=== PATIENT | female | born 1980 | race Hispanic/Latino ===

== ENCOUNTER 2019-09-17 19:01 | Inpatient (IN) ==
[2019-09-17] MEDS ORDERED: PEPCID PO PRN (19:04)
[2019-09-17] MEDS ORDERED: STADOL IV PRN ×3 (19:04)
[2019-09-17] MEDS ORDERED: PEPCID IV PRN (19:04)
[2019-09-17] MEDS ORDERED: PEPCID PO ONE (19:04)
[2019-09-17] MEDS ORDERED: AMBIEN PO PRN (19:04)
[2019-09-17] MEDS ORDERED: ZOFRAN IV PRN (19:04)
[2019-09-17] MEDS ORDERED: BRETHINE SUBQ PRN (19:04)
[2019-09-17] MEDS ORDERED: LR 1,000 ML IV ONE (19:04)
[2019-09-17] MEDS ORDERED: PITOCIN 30 UNITS/NS 30 UNIT/500 ML IV.SOLN IV SCH (19:15)
[2019-09-17 19:23] LABS: URINE SOURCE VOIDED
[2019-09-17 19:29] LABS: BILIRUBIN URINE NEGATIVE (NEGATIVE); BLOOD URINE NEGATIVE (NEGATIVE); COLOR YELLOW; GLUCOSE URINE NEGATIVE (NEGATIVE); KETONE URINE NEGATIVE (NEGATIVE); LEUKOCYTES URINE NEGATIVE (NEGATIVE); NITRITE URINE NEGATIVE (NEGATIVE); PROTEIN URINE NEGATIVE (NEGATIVE); SP GRAVITY URINE 1.006; TURBIDITY URINE CLEAR (CLEAR); UROBILINOGEN URINE NORMAL (NORMAL)
[2019-09-17 19:40] LABS: UR AMPHETAMINES QUAL NONE DETECTED (NONE DETECT); UR BARBITUATES QUAL NONE DETECTED (NONE DETECT); UR BENZODIAZEPIN QUAL NONE DETECTED (NONE DETECT); UR CANNABINOIDS QUAL NONE DETECTED (NONE DETECT); UR COCAINE QUAL NONE DETECTED (NONE DETECT); UR METHADONE QUAL NONE DETECTED (NONE DETECT); UR OPIATES QUAL NONE DETECTED (NONE DETECT); UR OXYCODONE QUAL NONE DETECTED (NONE DETECT); UR PCP QUAL NONE DETECTED (NONE DETECT)
[2019-09-17 20:15] LABS: BASO# 0.01 X1000 (0.0-0.2); BASO% 0.2 % (0.0-0.8); EOS# 0.04 X1000 (0.0-0.7); EOS% 0.6 % (0.0-10.0); HEMATOCRIT 35.7 % (37.0-47.0); HEMOGLOBIN 11.6 g/dL (12.0-16.0); IMM GRAN# 0.02 X1000 (0.0-0.04); IMM GRAN% 0.3 % (0.0-0.5); LYMPH# 1.39 X1000 (1.2-3.4); LYMPH% 21.1 % (20.5-51.1); MCH 26.2 PG (27-31); MCHC 32.5 g/dL (33-37); MCV 80.8 FL (81-99); MONO# 0.86 X1000 (0.11-0.59); MPV 10.8 FL (7.4-10.4); NEUT# 4.28 X1000 (1.4-6.5); NEUT% 64.8 % (42.2-75.2); PLT 264 X1000 (130-400); RBC 4.42 XMIL (4.2-5.4); RDW 20.2 % (11.5-14.5)
[2019-09-17] MEDS: CYTOTEC PO SCH (20:15)
[2019-09-17] MEDS: TYLENOL PO PRN (23:24)
[2019-09-18] MEDS: CYTOTEC PO SCH (00:25)
[2019-09-18] MEDS ORDERED: CYTOTEC PO ONE (04:22)
[2019-09-18] MEDS: REGLAN PO ONE (04:23)
[2019-09-18] MEDS ORDERED: XYLOCAINE-MPF 1% INJ PRN (07:28)
[2019-09-18] MEDS ORDERED: MINERAL OIL TOP PRN (07:28)
--- NOTE | 2019-09-18 14:44 | HISTORY AND PHYSICAL ---
HISTORY OF PRESENT ILLNESS: The patient is a 39-year-old female, G5, P4, at 41 weeks gestation. This was noted by last menstrual period and a 3rd trimester ultrasound. Patient had received late care. Group B strep culture was negative. Cervix was 1 cm in the office and still had thickness and was posterior. It was felt she could using cervical ripening. Ultrasound in the office revealed that her VIOLETA was on the low end of normal and due to the 41 week status based on blade care, we will proceed with cervical ripening and induction of labor. PAST MEDICAL HISTORY: Unremarkable. PAST SURGICAL HISTORY: None. PAST OB HISTORY: G5- P4, spontaneous vaginal delivery x4. Her largest infant was 7 pounds. 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 REVIEW OF SYSTEMS: All systems reviewed and noncontributory. FAMILY HISTORY: Significant for high blood pressure. SOCIAL HISTORY: Tobacco use none alcohol use none. MEDICATIONS: vitamins and iron. ALLERGIES: No known drug allergies. PHYSICAL EXAMINATION: VITAL SIGNS: Height 5 feet 3 inches, weight 173 pounds, temp 98.1 degrees, blood pressure 110/57, pulse of 96, respirations 18, heart rate in the 130s with good zmyx-uh-ddag variability. HEENT: Pupils equal, round, reactive to light accommodation. Extraocular movements intact. Oropharynx clear. NECK: Supple, no thyromegaly. LUNGS: Clear to auscultation. HEART: Regular rate and rhythm. ABDOMEN: Gravid, nontender. PELVIC: Cervix was 1 cm of 40% effaced and -2 station. Ultrasound confirmed vertex presentation. EXTREMITIES: No clubbing, cyanosis, or edema noted. NEUROLOGIC: Cranial nerves 2-12 grossly intact. Motor 5/5, DTRs 2+ bilaterally. ASSESSMENT/PLAN: 39-year-old female G5, P4, at 41 weeks gestation by late care. The patient will be admitted for cervical ripening and induction of labor. cc: Kwame Mancuso III, MD
[2019-09-19] MEDS ORDERED: PEPCID PO ONE (07:17)
[2019-09-19] MEDS ORDERED: REGLAN PO ONE (07:17)
[2019-09-19] MEDS ORDERED: LR 500 ML IV ONE (07:17)
[2019-09-19] MEDS ORDERED: KEFZOL 1 GM/D5W 1 GM/50 ML IVPB IV PRN (07:17)
[2019-09-19] MEDS ORDERED: BICITRA ONE (07:43)
[2019-09-19] MEDS ORDERED: BICITRA PO ONE (07:43)
[2019-09-19] MEDS: REGLAN PO ONE (07:45)
[2019-09-19] MEDS ORDERED: FENTANYL ONE (07:47)
[2019-09-19] MEDS ORDERED: DURAMORPH ONE (07:47)
[2019-09-19] MEDS: KEFZOL 1 GM/D5W 1 GM/50 ML IVPB IV PRN ×2 (07:49→07:58)
[2019-09-19] MEDS ORDERED: ROBINUL ONE (08:06)
[2019-09-19] MEDS ORDERED: DECADRON ONE (08:06)
[2019-09-19] MEDS ORDERED: ZOFRAN ONE (08:06)
[2019-09-19] MEDS: LR 1,000 ML IV SCH (08:09)
[2019-09-19] MEDS ORDERED: PITOCIN ONE (09:07)
[2019-09-19] MEDS ORDERED: NORCO-5 PO PRN (09:31)
[2019-09-19] MEDS ORDERED: MYLICON PO PRN (09:31)
[2019-09-19] MEDS ORDERED: PITOCIN IM PRN (09:31)
[2019-09-19] MEDS ORDERED: PITOCIN 20 UNITS/NS 20 UNITS/1,000 ML IV.SOLN IV ONE (09:31)
[2019-09-19] MEDS ORDERED: AMBIEN PO PRN (09:31)
[2019-09-19] MEDS ORDERED: DULCOLAX PR PRN (09:31)
[2019-09-19] MEDS ORDERED: DEMEROL PO PRN ×2 (09:31)
[2019-09-19] MEDS ORDERED: HYDROXYZINE IM PRN (09:31)
[2019-09-19] MEDS ORDERED: ATARAX PO PRN (09:31)
[2019-09-19] MEDS ORDERED: BOOSTRIX VACCINE IM ONE (09:31)
[2019-09-19] MEDS ORDERED: DEMEROL IM PRN (09:31)
[2019-09-19] MEDS ORDERED: PHENERGAN IM PRN (09:31)
[2019-09-19] MEDS ORDERED: M-M-R II VACCINE SUBQ ONE (09:31)
[2019-09-19] MEDS: TORADOL IV SCH ×3 (09:46→21:40)
[2019-09-19] MEDS ORDERED: ZOFRAN ODT PO PRN (10:30)
[2019-09-19] MEDS ORDERED: ZOFRAN IV PRN ×2 (10:30)
[2019-09-19] MEDS ORDERED: BENADRYL IV PRN (10:30)
[2019-09-19] MEDS ORDERED: NARCAN INJ PRN (10:30)
--- NOTE | 2019-09-19 11:13 | OPERATIVE NOTE ---
PROCEDURE DATE: 09/19/2019 PREOPERATIVE DIAGNOSIS: Intrauterine at 41 weeks with compound presentation. POSTOPERATIVE DIAGNOSES: 1. Intrauterine at 41 weeks with compound presentation. 2. Operative delivery of a female , 7 pounds 7 ounces with Apgars of 9 and 9 at 08:39 on 09/19/2019. PROCEDURE: Primary low-transverse section. SURGEON: Dr. Kwame Mancuso. CATEGORY PLANNER: Dr. Duarte. ANESTHESIA: Spinal, Dr. Pelaez. FINDINGS: Normal-appearing uterus, tubes, and ovaries. COMPLICATIONS: None. ESTIMATED BLOOD LOSS: 700 mL. SPECIMENS REMOVED: None. COUNTS: All counts were correct x3. DRAINS: Rogel to straight drain with clear urine noted. INDICATION: This patient is a 39-year-old female, G5, P4, at 41 weeks gestation who had an attempt at induction. However, there was no cervical change and no descent. Ultrasound revealed a compound presentation with the vertex and hand and arm. due to this compound presentation, discussed with patient about proceeding with operative delivery. Patient counseled about the risks of surgery including bleeding, infection, bowel or bladder injury. PROCEDURE: Patient was taken to the Labor and Delivery OR, had spinal anesthesia placed. She was then placed in a supine position with a roll under the right hip. She was then prepped and draped in a sterile fashion. Adequate anesthesia was noted by Allis clamps on skin. A Pfannenstiel skin incision was made on lower abdomen using a scalpel. This was then taken down sharply to the fascia layer. A small vanessa was made in the rectus fascia. Fascial incision was extended bilaterally with curved Betancur scissors and then blunt and sharp dissection of the superior and inferior aspects of the rectus fascia were performed. The rectus muscles were divided in the midline. Peritoneal layer was entered bluntly. The peritoneal incision was extended superiorly and inferiorly with care taken to avoid the bladder. Bladder reflection was created using Metzenbaum scissors and bladder blade was placed into the abdominal cavity. A transverse incision was made on lower uterine segment. This was extended bilaterally by surgeon's fingers and the head was then elevated toward the hysterotomy site. With gentle fundal pressure, the head was delivered and bulb suction of nose and mouth at this point in time. Clear fluid was noted upon entry into the amniotic cavity. The rest the body was delivered atraumatically with gentle fundal pressure. The umbilical cord was clamped twice and cut. Infant handed to nursery nurse in attendance for delivery. Cord blood sample was obtained at this time. Placenta was then manually extracted. The uterus was then exteriorized. Wet lap was placed around the uterus, dry lap was then used to curette the uterine cavity of clots and debris. The uterine incision was then closed using 0 chromic in a running locking fashion x1. A small area of oozing was noted on the left corner, made hemostatic with [id number] stitches of 0 chromic. The right corner also had a small amount of oozing and this was also made hemostatic with [id number]-[id number]-[id number] stitches. Posterior cul-de-sac was irrigated copiously. The uterus was placed back into the abdominal cavity. Pericolic gutters were cleansed using moist lap sponges. The uterus and bladder reflection were inspected and good hemostasis was noted. The peritoneal layer was closed using 2- 0 chromic in a running fashion x1. Two interrupted stitches to help reapproximate the rectus muscle were employed. Zero PDS was then used to close the fascia in a running fashion x1. Subcutaneous layer was irrigated and electrocautery was used to obtain hemostasis. The skin was then reapproximated using ted. The patient tolerated the procedure well and was taken recovery room in stable condition. All counts were correct x3. cc: Kwame Mancuso III, MD
[2019-09-19] MEDS: MYLICON PO SCH ×2 (12:58→21:39)
[2019-09-19] MEDS: PITOCIN 10 UNITS/NS 1,000 ML IV SCH (18:53)
[2019-09-19] MEDS: PERICOLACE PO SCH (21:40)
[2019-09-20] MEDS: PITOCIN 10 UNITS/NS 1,000 ML IV SCH (02:45)
[2019-09-20] MEDS: TYLENOL PO PRN (03:49)
[2019-09-20] MEDS: TORADOL IV SCH (03:50)
[2019-09-20 05:28] LABS: BASO# 0.01 X1000 (0.0-0.2); BASO% 0.1 % (0.0-0.8); EOS# 0.03 X1000 (0.0-0.7); EOS% 0.4 % (0.0-10.0); HEMATOCRIT 27.6 % (37.0-47.0); HEMOGLOBIN 8.6 g/dL (12.0-16.0); IMM GRAN# 0.02 X1000 (0.0-0.04); IMM GRAN% 0.2 % (0.0-0.5); LYMPH# 1.67 X1000 (1.2-3.4); LYMPH% 19.8 % (20.5-51.1); MCH 25.7 PG (27-31); MCHC 31.2 g/dL (33-37); MCV 82.6 FL (81-99); MONO# 0.91 X1000 (0.11-0.59); MONO% 10.8 % (1.7-9.3); MPV 10.1 FL (7.4-10.4); NEUT% 68.7 % (42.2-75.2); PLT 196 X1000 (130-400); RBC 3.34 XMIL (4.2-5.4); RDW 19.7 % (11.5-14.5); WBC 8.44 X1000 (4.8-10.8)
[2019-09-20] MEDS ORDERED: MYLICON PO PRN (08:01)
--- NOTE | 2019-09-20 08:01 | OB/GYN PROGRESS NOTE ---
- Subjective no complaints except for gas, wants blank out OB Physical Exam Vital Signs - 8 hr 09/20/19 02:46 Pulse Rate 61 Respiratory Rate 18 Blood Pressure 109/64 O2 Sat by Pulse Oximetry 99 - CONSTITUTIONAL General Appearance: appears well, alert, no apparent distress - EYES Eyes: PERRL/EOMI - HEAD, EARS, NOSE, MOUTH & THROAT HENMT: normocephalic/atraumatic - RESPIRATORY Respiratory: no respiratory distress - CARDIOVASCULAR Cardiovascular: regular rate, rhythm - CHEST (BREASTS) Chest/Breast: deferred - GASTROINTESTINAL (ABDOMEN) Abdominal Exam: non tender, soft - GENITOURINARY Female Genitalia/Pelvic Exam: deferred - SKIN Integumentary: normal color - NEUROLOGIC Neurologic: grossly normal - PSYCHIATRIC Psych/Mental Status: normal thought content, oriented x 3 Active Medications Generic Name Dose Route Start Last Admin Trade Name Freq PRN Reason Stop Dose Admin Acetaminophen 650 mg 09/17/19 19:04 09/20/19 03:49 Tylenol PO 650 mg Q4-6H PRN PRN Administration Headache Hydrocodone Bitart/Acetaminophen 1 each 09/19/19 09:31 [place]-5 PO Q3H PRN PRN Pain (1-6 on Pain Scale) Hydrocodone Bitart/Acetaminophen 1 each 09/19/19 09:31 [place]-10 PO Q3-4H PRN PRN Pain (7-10 on Pain Scale) Bisacodyl 10 mg 09/19/19 09:31 Dulcolax [place] PRN PRN gas unrelieved by Mylicon Butorphanol Tartrate 1 mg 09/17/19 19:04 Stadol IV Q2H PRN PRN Pain (1-4 on Pain Scale) Butorphanol Tartrate 2 mg 09/17/19 19:04 09/18/19 04:32 Stadol IV 2 mg PRN PRN Administration Pain Butorphanol Tartrate 2 mg 09/17/19 19:04 09/18/19 09:01 Stadol IV 2 mg Q2H PRN PRN Administration Pain (5-10 on Pain Scale) Diphenhydramine HCl 12.5 mg 09/19/19 10:30 Benadryl IV 09/20/19 10:29 Q6H PRN PRN ITCHING IF ZOFRAN INEFFECTIVE Famotidine 20 mg 09/17/19 19:04 09/19/19 07:45 Pepcid PO 20 mg Q12H PRN PRN Administration GI upset or indigestion Famotidine 20 mg 09/17/19 19:04 Pepcid IV Q12H PRN PRN GI upset or indigestion Hydroxyzine HCl 50 mg 09/19/19 09:31 Atarax PO Q3-4H PRN PRN Nausea Hydroxyzine HCl 50 mg 09/19/19 09:31 Hydroxyzine IM Q3-4H PRN PRN Nausea Cefazolin Sodium/Dextrose 1 gm in 50 mls @ 100 mls/hr 09/17/19 19:04 09/19/19 07:58 Kefzol 1 Gm/D5w IV 100 mls/hr ONCE PRN PRN Administration section Oxytocin/Sodium Chloride 30 unit in 500 mls @ 0 mls/hr 09/17/19 19:15 09/18/19 08:37 Pitocin 30 Units/Ns IV 2 mls/hr .Q0M BRYCE Administration As Directed Cefazolin Sodium/Dextrose 1 gm in 50 mls @ 100 mls/hr 09/19/19 07:17 Kefzol 1 Gm/D5w IV ONCE PRN PRN section Lactated Ringer's 1,000 mls @ 125 mls/hr 09/19/19 07:30 09/19/19 08:09 Lr IV 125 mls/hr .Q8H BRYCE Administration Lactated Ringer's 1,000 mls @ 125 mls/hr 09/20/19 09:31 Lr IV .Q8H BRYCE Ibuprofen 800 mg 09/19/19 09:31 Motrin PO Q8H PRN PRN Pain Lidocaine HCl 30 ml 09/18/19 07:28 Xylocaine-Mpf 1% INJ PRN PRN perineal repair Meperidine HCl 50 mg 09/19/19 09:31 Demerol PO Q4H PRN PRN Pain (1-6 on Pain Scale) Meperidine HCl 100 mg 09/19/19 09:31 09/19/19 12:57 Demerol PO 100 mg Q4H PRN PRN Administration Pain (7-10 on Pain Scale) Meperidine HCl 50 mg 09/19/19 09:31 Demerol IM Q3H PRN PRN Pain Mineral Oil 30 ml 09/18/19 07:28 Mineral Oil TOP PRN PRN lubrication Naloxone HCl 0.4 mg 09/19/19 10:30 Narcan INJ 09/20/19 10:29 DIRECTED PRN PRN Ondansetron HCl 4 mg 09/17/19 19:04 Zofran IV PRN PRN Nausea Ondansetron HCl 4 mg 09/19/19 10:30 Zofran Odt PO 09/20/19 10:29 DIRECTED PRN PRN Ondansetron HCl 4 mg 09/19/19 10:30 Zofran IV 09/20/19 10:29 DIRECTED PRN PRN Ondansetron HCl 4 mg 09/19/19 10:30 Zofran IV 09/20/19 10:29 Q4-6H PRN PRN Itching Oxytocin 20 unit 09/19/19 09:31 Pitocin IM PRN PRN Severe bleeding Promethazine HCl 25 mg 09/19/19 09:31 Phenergan IM Q3H PRN PRN Pain Senna/Docusate Sodium 1 each 09/19/19 21:00 09/19/19 21:40 Pericolace PO 1 each QHS BRYCE Administration Simethicone 80 mg 09/19/19 09:31 Mylicon PO PRN PRN GAS Simethicone 80 mg 09/19/19 13:00 09/19/19 21:39 Mylicon PO 80 mg PC + HS BRYCE Administration Terbutaline Sulfate 0.25 mg 09/17/19 19:04 Brethine SUBQ PRN PRN tachysystole/hypertonus Zolpidem Tartrate 10 mg 09/17/19 19:04 Ambien PO HS PRN PRN Sleep Zolpidem Tartrate 10 mg 09/19/19 09:31 Ambien PO HS PRN PRN Sleep Laboratory Results - last 24 hr 09/20/19 05:09 WBC 8.44 RBC 3.34 L Hgb 8.6 L Hct 27.6 L MCV 82.6 MCH 25.7 L MCHC 31.2 L RDW Std Deviation 19.7 H Plt Count 196 MPV 10.1 Immature Gran % (Auto) 0.2 Neut % (Auto) 68.7 Lymph % (Auto) 19.8 L Mclean % (Auto) 10.8 H Eos % (Auto) 0.4 Baso % (Auto) 0.1 Immature Gran # (Auto) 0.02 Neut # (Auto) 5.80 Lymph # (Auto) 1.67 Mclean # (Auto) 0.91 H Eos # (Auto) 0.03 Baso # (Auto) 0.01 OB Assessment & Plan (1) Normal course Status: Acute Plan: continue to follow , simethicone for gas
[2019-09-20] MEDS: MYLICON PO SCH ×5 (09:13→18:36)
[2019-09-20] MEDS: MOTRIN PO PRN (14:12)
[2019-09-20] MEDS: NORCO-10 PO PRN ×2 (14:12→18:36)
[2019-09-20] MEDS: LR 1,000 ML IV SCH (18:37)
[2019-09-21] MEDS: MOTRIN PO PRN ×2 (01:12→17:24)
[2019-09-21] MEDS: PERICOLACE PO SCH ×3 (01:13→21:13)
[2019-09-21] MEDS: MYLICON PO SCH ×5 (05:59→20:19)
[2019-09-21] MEDS: LR 1,000 ML IV SCH ×2 (05:59)
--- NOTE | 2019-09-21 07:28 | OB/GYN PROGRESS NOTE ---
- Subjective PO2 no cx s/nt cdi -cce hgb 11.6 dn to 8.6 A POD2 ambulating luisa reg home in am OB Physical Exam Vital Signs - 8 hr 09/21/19 01:15 09/21/19 05:15 Temperature 96.8 F L 97 F L Pulse Rate 79 65 Respiratory Rate 16 16 Blood Pressure 127/65 125/66 O2 Sat by Pulse Oximetry 100 99 - CONSTITUTIONAL General Appearance: appears well Active Medications Generic Name Dose Route Start Last Admin Trade Name Freq PRN Reason Stop Dose Admin Acetaminophen 650 mg 09/17/19 19:04 09/20/19 03:49 Tylenol PO 650 mg Q4-6H PRN PRN Administration Headache Hydrocodone Bitart/Acetaminophen 1 each 09/19/19 09:31 [place]-5 PO Q3H PRN PRN Pain (1-6 on Pain Scale) Hydrocodone Bitart/Acetaminophen 1 each 09/19/19 09:31 09/20/19 18:36 [place]-10 PO 1 each Q3-4H PRN PRN Administration Pain (7-10 on Pain Scale) Bisacodyl 10 mg 09/19/19 09:31 Dulcolax [place] PRN PRN gas unrelieved by Mylicon Butorphanol Tartrate 1 mg 09/17/19 19:04 Stadol IV Q2H PRN PRN Pain (1-4 on Pain Scale) Butorphanol Tartrate 2 mg 09/17/19 19:04 09/18/19 04:32 Stadol IV 2 mg PRN PRN Administration Pain Butorphanol Tartrate 2 mg 09/17/19 19:04 09/18/19 09:01 Stadol IV 2 mg Q2H PRN PRN Administration Pain (5-10 on Pain Scale) Famotidine 20 mg 09/17/19 19:04 09/19/19 07:45 Pepcid PO 20 mg Q12H PRN PRN Administration GI upset or indigestion Famotidine 20 mg 09/17/19 19:04 Pepcid IV Q12H PRN PRN GI upset or indigestion Hydroxyzine HCl 50 mg 09/19/19 09:31 Atarax PO Q3-4H PRN PRN Nausea Hydroxyzine HCl 50 mg 09/19/19 09:31 Hydroxyzine IM Q3-4H PRN PRN Nausea Ibuprofen 800 mg 09/19/19 09:31 09/21/19 01:12 Motrin PO 800 mg Q8H PRN PRN Administration Pain Lidocaine HCl 30 ml 09/18/19 07:28 Xylocaine-Mpf 1% INJ PRN PRN perineal repair Meperidine HCl 50 mg 09/19/19 09:31 Demerol PO Q4H PRN PRN Pain (1-6 on Pain Scale) Meperidine HCl 100 mg 09/19/19 09:31 09/19/19 12:57 Demerol PO 100 mg Q4H PRN PRN Administration Pain (7-10 on Pain Scale) Meperidine HCl 50 mg 09/19/19 09:31 Demerol IM Q3H PRN PRN Pain Mineral Oil 30 ml 09/18/19 07:28 Mineral Oil TOP PRN PRN lubrication Ondansetron HCl 4 mg 09/17/19 19:04 Zofran IV PRN PRN Nausea Oxytocin 20 unit 09/19/19 09:31 Pitocin IM PRN PRN Severe bleeding Promethazine HCl 25 mg 09/19/19 09:31 Phenergan IM Q3H PRN PRN Pain Senna/Docusate Sodium 1 each 09/19/19 21:00 09/21/19 01:13 Pericolace PO 1 each QHS BRYCE Administration Simethicone 80 mg 09/19/19 09:31 Mylicon PO PRN PRN GAS Simethicone 80 mg 09/19/19 13:00 09/21/19 05:59 Mylicon PO Not Given PC + HS BRYCE Simethicone 80 mg 09/20/19 08:01 Mylicon PO 4XDAY PRN PRN Dyspepsia Terbutaline Sulfate 0.25 mg 09/17/19 19:04 Brethine SUBQ PRN PRN tachysystole/hypertonus Zolpidem Tartrate 10 mg 09/17/19 19:04 Ambien PO HS PRN PRN Sleep Zolpidem Tartrate 10 mg 09/19/19 09:31 Ambien PO HS PRN PRN Sleep
[2019-09-21] MEDS: NORCO-10 PO PRN ×2 (08:22→20:18)
[2019-09-21] MEDS ORDERED: MILK OF MAGNESIA PO ONE (19:48)
[2019-09-22 07:58] VITALS: BP 117/69
[2019-09-22] MEDS: MYLICON PO SCH (08:37)
[2019-09-22] MEDS: MOTRIN PO PRN (08:37)
[2019-09-22] MEDS: PERICOLACE PO SCH (08:45)
[2019-09-22] MEDS ORDERED: MILK OF MAGNESIA PO ONE (10:28)
--- NOTE | 2019-09-23 07:27 | DISCHARGE SUMMARY ---
ADMISSION DATE: 09/17/2019 DISCHARGE DATE: 09/22/2019 ADMITTING DIAGNOSES: 1. at 41 weeks gestation. 2. Breech presentation. 3. Multiparity. 4. Induction of labor with cervical ripening. 5. Compound presentation. 6. Primary low transverse section. DISCHARGE DIAGNOSES: 1. at 41 weeks gestation. 2. Breech presentation. 3. Multiparity. 4. Induction of labor with cervical ripening. 5. Compound presentation. 6. Primary low transverse section. 7. Liveborn delivered. HOSPITAL COURSE: The patient is a 39-year-old 5, para 4, now 5, who presented at 41 weeks gestation with low normal amniotic fluid for cervical ripening and delivery. The following day after admission was noted to have a compound presentation with the vertex and one arm, and after 24 hours of induction the arm failed to reduce, and primary section was performed. Please see separate operative note for full details. Her course is uncomplicated. On day #1, she began ambulating tolerating a liquid diet. Hemoglobin 8.6 down from 11.6. day #2, vital signs stable and afebrile. She is ambulating, voiding, and tolerating a regular diet. She is discharged home on day #3 without any difficulties. She is asked to follow up in the office in less than 1 week for staple removal. To call the office for pain, fever greater than 100.4, or abnormal uterine bleeding. Maintain pelvic rest and regular diet. Continue vitamins with iron. A prescription for Motrin and Percocet provided. cc: Kwame Mancuso III, MD
== END 2019-09-22 10:45 | disposition home or self-care (01) | DRG 788 ==
LOC: LD 19:01
PROVIDERS: ADMIT Obstetrics & Gynecology; ATTEND Obstetrics & Gynecology